=== PATIENT | female | born 1985 ===

== ENCOUNTER 2019-01-02 07:05 | Day surgery (SDC) | payer OTHER, MEDICAID ==
[2019-01-02 07:20] VITALS: BMI 30.9
[2019-01-02] MEDS ORDERED: Lactated Ringer's 1,000 ML IV ONE ×2 (07:35→09:24)
[2019-01-02] MEDS ORDERED: Succinylcholine 200 mg/10 ml Inj IV ONE (07:38)
[2019-01-02] MEDS ORDERED: Propofol 10 mg/ml Inj (20 ML) ONE ×2 (07:38→10:09)
[2019-01-02] MEDS ORDERED: Rocuronium 10 mg/ml (5 ml) ONE (07:38)
[2019-01-02] MEDS ORDERED: Lidocaine 4% (Laryng-O-Jet) Kit MM ONE (07:39)
--- NOTE | 2019-01-02 09:22 | CP.PCM.HP ---
History of Present Illness - History of Present Illness History of Present Illness: 33-year-old female for elective bilateral tubal ligation. Discussed with patient the risks, benefits, alternatives of surgery. Discussed with patient all other alternatives of contraception. Patient consented for BTL. Present on Admission - Present on Admission Any Indicators Present on Admission: No History of DVT/PE: No History of Uncontrolled Diabetes: No Urinary Catheter: No Decubitus Ulcer Present: No Past Patient History - Infectious Disease Hx of Infectious Diseases: None - Tetanus Immunizations Tetanus Immunization: Unknown - Past Medical History & Family History Past Medical History?: Yes - Past Social History Smoking Status: Never Smoked - CARDIAC Hx Cardiac Disorders: No - PULMONARY Hx Respiratory Disorders: Yes Hx Asthma: Yes - NEUROLOGICAL Hx Migraine: Yes Hx Seizures: Yes (as a child last 1994) Other/Comment: LAST SEIZURE 1994 - HEENT Hx HEENT Problems: No - RENAL Hx Chronic Kidney Disease: No - ENDOCRINE/METABOLIC Hx Endocrine Disorders: No - HEMATOLOGICAL/ONCOLOGICAL Hx Blood Disorders: No - INTEGUMENTARY Hx Dermatological Problems: No - MUSCULOSKELETAL/RHEUMATOLOGICAL Hx Musculoskeletal Disorders: No - GASTROINTESTINAL Hx Gastrointestinal Disorders: No - GENITOURINARY/GYNECOLOGICAL Hx Genitourinary Disorders: No - PSYCHIATRIC Hx Emotional Abuse: No Hx Physical Abuse: No - SURGICAL HISTORY Hx Surgeries: Yes Hx Section: Yes (x2) - ANESTHESIA Hx Anesthesia: Yes Hx Anesthesia Reactions: No Hx Malignant Hyperthermia: No Has any member of the family had a problem w/ anesthesia?: No Meds Allergies/Adverse Reactions: Allergies Allergy/AdvReac Type Severity Reaction Status Date / Time Penicillins Allergy RASH Verified 01/02/19 07:16 Physical Exam - Constitutional Appears: Well, No Acute Distress - Head Exam Head Exam: ATRAUMATIC - ENT Exam ENT Exam: Mucous Membranes Moist - Respiratory Exam Respiratory Exam: Clear to Auscultation Bilateral, NORMAL BREATHING PATTERN - Cardiovascular Exam Cardiovascular Exam: REGULAR RHYTHM - GI/Abdominal Exam GI & Abdominal Exam: Soft. absent: Distended, Tenderness - Extremities Exam Extremities exam: Positive for: normal inspection. Negative for: calf tenderness - Neurological Exam Neurological exam: Alert, Oriented x3 Results - Vital Signs Recent Vital Signs: Last Vital Signs Temp 97.7 F 01/02/19 07:22 Pulse 73 01/02/19 07:28 Resp 18 01/02/19 07:22 BP 107/67 01/02/19 07:22 Pulse Ox 100 01/02/19 07:22 Assessment & Plan - Assessment and Plan (Free Text) Assessment: Patient request for permanent sterilization. Plan: As above. Patient consented for laparoscopic BTL. Plan for routine postop observation and care - Date & Time Date: 01/02/19 Time: 09:23
[2019-01-02] MEDS ORDERED: Midazolam 2 MG/2 ML VIAL ONE (09:34)
[2019-01-02] MEDS ORDERED: Dexamethasone 4 mg/1 ml ONE (10:02)
[2019-01-02] MEDS ORDERED: ePHEDrine 50 mg/ml Inj ONE (10:07)
[2019-01-02] MEDS ORDERED: HYDROmorphone 0.5 mg/0.5 ml ISec IVP PRN (11:02)
[2019-01-02] MEDS ORDERED: Lactated Ringer's 1,000 ML IV SCH (11:15)
--- NOTE | 2019-01-02 12:35 | PCM.SURG1 ---
Surgeon's Initial Post Op Note - Surgeon's Notes Surgeon: Abdoul Mechanic Sound Technician: N/A Type of Anesthesia: General Endo Anesthesia Administered By: Abelardo Pre-Operative Diagnosis: Request for sterilization Operative Findings: Normal uterus, normal tubes/ovaries bilaterally Post-Operative Diagnosis: Same Operation Performed: Laparoscopic BTL Specimen/Specimens Removed: None Estimated Blood Loss: EBL {In ML}: 5 Blood Products Given: N/A Drains Used: No Drains Post-Op Condition: Good Date of Surgery/Procedure: 01/02/19 Time of Surgery/Procedure: 12:34
[2019-01-02 13:05] VITALS: RESP 18
[2019-01-02] MEDS ORDERED: Oxycodone/Acetaminophen 5/325 mg Tab PO ONE ×3 (13:08→13:31)
[2019-01-02 13:50] VITALS: BP 104/64; PULSE 68; TEMP 97.4; O2SAT 95
--- NOTE | 2019-01-03 00:26 | OP ---
PROCEDURE DATE: 01/02/2019 PREOPERATIVE DIAGNOSIS: Request for permanent sterilization. POSTOPERATIVE DIAGNOSIS: Request for permanent sterilization. OPERATION PERFORMED: Laparoscopic bilateral tubal ligation. OPERATIVE FINDINGS: Normal uterus, normal tubes and ovaries bilaterally. ESTIMATED BLOOD LOSS: 5 mL. FLUIDS: 600 mL lactated Ringers. URINE OUTPUT: 200 mL of clear urine at the end of procedure. SURGEON: Jordan Schreiber MD. ANESTHESIOLOGIST: Dr. Zhou. ANESTHESIA: General. COMPLICATIONS: None. DESCRIPTION OF PROCEDURE: The patient was taken to the operating room where general anesthesia was found to be adequate. The patient was prepped and draped in normal sterile fashion in a dorsal lithotomy position. A weighted speculum was placed at the posterior aspect of the vagina. A Pemberton retractor was placed at the anterior surface of the vagina. The cervix was grasped with a single-tooth tenaculum at the anterior surface. The cervix was dilated with Belcher dilators to a size of 16-Stateless. HUMI uterine manipulator was placed through the cervix into the uterine cavity. The tenaculum was removed under direct visualization. All the instruments were removed from the vagina. Attention was then turned to the abdomen. An approximately 5 mm incision was placed at the umbilicus. A Veress needle was placed through this incision into the abdominal cavity. After proper placement ensured, the abdominal cavity was insufflated with CO2 gas to a pressure of 15 mmHg. The Veress needle was removed from the abdomen. A 5 mm trocar was placed through the umbilical incision into the abdominal cavity. The laparoscope was placed through this trocar. The abdomen and pelvis were explored and the above findings noted. An accessory port was placed on the right aspect of the abdomen. This was placed under direct visualization. The right fallopian tube was isolated, electrocauterized with LigaSure device and transected. An approximately 3 cm portion of the fallopian tube was electrocauterized. Attention was then turned to the left fallopian tube. The left fallopian tube was isolated, electrocauterized with LigaSure device, and transected. An approximately 3 cm portion of the left fallopian tube was electrocauterized. Reinspecting of both the surgical sites were found to be hemostatic. The accessory port site was removed under direct visualization. The umbilical trocar was removed. The subcutaneous tissue was reapproximated with 3-0 plain for both port sites. The skin was closed with Dermabond at both port sites. The patient tolerated the procedure well. All sponge count, lap count, and needle counts were correct x2. There were no complications. The patient was taken to the recovery room in awake and stable condition. Jordan Schreiber MD
== END 2019-01-02 14:24 | disposition home or self-care (01) ==
LOC: H.OPSURG 07:05
PROVIDERS: ATTEND Obstetrics & Gynecology
DX: Z30.2 Encounter for sterilization (principal)
CPT/HCPCS: 58670; J0330; J1100; J1885; J2001; J2250; J2405; J2704; J2765; J3010; J7030; J7120